=== PATIENT | male | born 1980 | race Caucasian/White ===

== ENCOUNTER 2017-07-26 15:19 | Emergency (ER) | payer MEDICAID ==
[~2017-07-26] VITALS: Ht 177.8 cm; Wt 113.4 kg
[~2017-07-26 15:19] MED LIST: AMOXIL500 MG PO; BACTRIM DS 8001 TA1 PO; CLEAR EYES OP; CYCLOBENZAPRINE10 MG PO; DICLOFENAC 50MG50 MG PO; FENOFIBRATE160 MG PO; HYDROCHLOROTHIA25 M1 PO; LORTAB 5/500 501 TAB PO; MILK OF MA400 MG/52 PO; NAPROSYN 500MG500 MG PO; NOMEDS *; PREDNISONE 20MG20 MG PO; SEPTRA DS 800 M1 TAB PO; TRAMADOL 50MG T50 MG PO; Tramadol HCl50 MG PO; ULTRAM 50 MG TA50 MG PO; VOLTAREN75 MG PO
--- NOTE | 2017-07-26 15:56 | Emergency Room Report ---
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 N Clinical Suspician of Infection? N Mental Status: 1 - Regular (Normal Baseline) Sepsis Risk:Low Sepsis Risk Have you (or family members/close friends) recently traveled outside the [place]? N If Yes, where/when: Have you had exposure to infectious disease within the past month? TB? Other? Specify: His old white male status post diverticulosis and colon resection due to recurrent diverticulitis [address] Soares in [facility]. He presented to the ED complaining of left-sided abdominal pain, no bowel movements and no gas for 2 days, patient has nausea but no vomiting. The pain is worse by leaning forward and better by laying down. He denies having dysuria, hematuria or frequency. He denies having fever or chills, he denies having penile or testicular pain. Source patient, RN notes reviewed Exam Limitations no limitations ALLERGIES Coded Allergies: No Known Allergies (07/26/17) History Medical History General CAD? No Angina: No VT: No Hypertension? Yes Hyperlipidemia? Yes CHF? No COPD? No Asthma? No Anemia? No Hernia? No Thyroid Problems? No Hypothyroidism? No CVA? No Seizures? No Diabetes? No End Stage Renal Disease? No UTI? No Stones? No BPH? No GB Disease: No Nephritic Syndrome? No Asplenia? No Hepatitis? No Sickle Cell Disease? No Arthritis? No Migraines? No Cataracts? No Glaucoma? No MRSA? Yes HIV? No TB? No Anxiety? No Depression? No Cancer? No More? No Immunization Hx Ped.Immunizations UTD Yes DT/Tetanus < 1 YR AGO Flu 2012-FSN Pneumonia Received In Past Surgical Hx Previous Surgery?Y LT ARM JAW RT LEG RT ANKLE RT KNEE COLON 0CT. 15,14 RT SHOULDER Family History Family Hx Diabetes Yes CAD Yes Hypertension Yes Hyperlipidemia Yes Cancer No TB No Social History Smoking Hx Smoker: Current Every Day Smoker Tobacco: Yes Type Cigarettes Packs/day < 1 Pack Alcohol Alcohol: No Review of Systems All Other Systems Reviewed and Negative Constitutional no symptoms reported Eyes no symptoms reported ENT no symptoms reported. Respiratory no symptoms reported Cardiovascular no symptoms reported Gastrointestinal see HPI, abdominal pain Genitourinary no symptoms reported. Musculoskeletal no symptoms reported Skin no symptoms reported Psychiatric/Neurological no symptoms reported Physical Exam Vital Signs Vital Signs Date Time Temp Pulse Resp B/P Pulse O2 O2 Flow FiO2 Ox Delivery Rate 07/26 1631 18 07/26 1528 98.2 101 18 182/100 100 - WBC >12,000 or <4,000 or 10% bands? 2 or more SIRS Criteria Met? B/P:182/100 MAP:127 Creatinine >2.0? UA output<0.5ml/kg/hr for 2 hrs? Platelet count >100,000? Lactate >2.0mmol/1? INR >1.2 or PTT > than 60 sec? Evidence of Organ Dysfunction? Provider documented clinical suspician of infection? N Sepsis Criteria Count: 1 Sepsis Risk: Low Sepsis Risk General Appearance normal appearance, WD/WN Eye Exam - bilateral eye normal exam, bilateral eye PERRL, bilateral eye EOMI Ear, Nose, Throat hearing grossly normal, normal ENT inspection Neck normal inspection, non-tender, supple, full range of motion Respiratory Status Yes: trachea midline, chest symmetrical, non tender chest. No: respiratory distress. Lung Sounds bilateral: normal breath sounds, lungs clear. Cardiovascular normal exam, regular rate/rhythm, no peripheral edema, no gallop, no JVD, no murmur, no rub, normal peripheral pulses Peripheral Pulses Pulses normal Yes Gastrointestinal normal bowel sounds, normal exam, soft, no organomegaly, no guarding, tenderness, obese soft abdomen with no guarding no rigidity LEFT lower quadrant tenderness with no rebound tenderness, there is cross tenderness on deep palpation to the RIGHT lower quadrant into the LEFT lower quadrant. 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 No Results/Orders Laboratory Tests 07/26/17 1600: Sodium 137, Potassium 3.8, Chloride 105, Carbon Dioxide 29, BUN 12, Creatinine 1.1, Estimated Creat Clear 150, Estimated GFR (MDRD) 76, Glucose 111 H, Calcium 8.5, Total Bilirubin 0.3, AST 17, ALT 29, Alkaline Phosphatase 112, Total Protein 7.2, Albumin 3.9, Globulin 3.3 H, Albumin/Globulin Ratio 1.2, WBC 8.5, RBC 5.33, Hgb 16.1, Hct 46.5, MCV 87.2, RDW 12.2, Plt Count 232, MPV 7.7, Gran % 61.8, Gran # 5.3, Lymphocytes % 28.8, Monocytes % 6.7, Eosinophils % 2.3, Basophils % 0.4, Lymphocytes # 2.4, Monocytes # 0.6, Eosinophils # 0.2, Basophils # 0.0, PUBS MCHC 34.6, MCH 30.2, Urine Color YELLOW, Urine Appearance CLEAR, Urine pH 6.0, Ur Specific [place] >= 1.030, Urine Protein NEGATIVE, Urine Ketones NEGATIVE, Urine Blood NEGATIVE, Urine Nitrate NEGATIVE, Urine Bilirubin NEGATIVE, Urine Urobilinogen 0.2, Ur Leukocyte Esterase NEGATIVE, Urine WBC OCC, Ur Squamous Epith Cells OCC, Urine Bacteria 3+, Urine Mucus 4+, Urine Glucose NEGATIVE Current Medication Orders Sig/Brayan Start time Last Medication Dose Route Stop Time Status Admin Iopamidol 75 ML ONCE ONE 07/26 1645 UNV 07/26 IV 07/26 1646 1637 Sodium Chloride 10 ML ONCE ONE 07/26 1645 UNV 07/26 IV 07/26 1646 1637 Diatrizoate Meglum/ 0 .STK-MED ONE 07/26 1607 DC Diatrizoate Sod .ROUTE Ertapenem 0 .STK-MED ONE 07/26 1607 DC .ROUTE Sodium Chloride 50 ML .STK-MED ONE 07/26 1607 DC IV Sodium Chloride 1,000 ML .STK-MED ONE 07/26 1607 DC IV Ketorolac 0 .STK-MED ONE 07/26 1606 DC Tromethamine .ROUTE Diatrizoate Meglum/ 30 ML ONCE ONE 07/26 1600 DC Diatrizoate Sod PO 07/26 1601 Ertapenem 1 GM ONCE ONE 07/26 1600 DC 07/26 Sodium Chloride 50 ML IV 07/26 1629 1633 Ketorolac 30 MG ONCE ONE 07/26 1600 DC 07/26 Tromethamine IV 07/26 1601 1631 Sodium Chloride 1,000 ML .Q1H1M 07/26 1600 DC 07/26 IV 07/26 1700 1631 Sodium Chloride 10 ML PRN PRN 07/26 1600 AC IV 07/27 1551 Orders Procedure Date/time Status DIET-NOTHING BY MOUTH 07/[address] ABD & PELVIS W/ CONTRAST 07/26 1603 Active CULTURE, URINE 07/[address] ABD/PELVIS REQ 07/26 155 Complete CULTURE, BLOOD 07/26 155 Active URINALYSIS/COMPLETE 07/26 155 Complete CBC WITH AUTO DIFF 07/26 155 Complete CHEM 12 PROFILE 07/26 155 Complete Departure Departure Time of Disposition 1555 Disposition Still a Patient Clinical Impression Primary Impression: Abdominal pain of unknown cause Secondary Impressions: UTI (urinary tract infection) Condition STABLE Referrals Renée Juarez APRN (Family) Additional Instructions THE PATIETN FELT BETTER AND HAD NO VOMITING. THE CBC AND CT SCAN WAS NEGATIVE FOR INTRA ABDOMINAL PATHOLOGY. HIS UA WAS POSITIVE FOR BACT. I WILL START HIM ON CIPRO 500 MG BID X ONE WEEK. BENTYL FOR CRAMPS. FOLLOW UP WITH HIS MIKEY IN AM Discharge Counseling Counseled pt/family regarding diagnosis, test results, medications/RX, home care, follow up needs Prescriptions Current Visit Scripts CIPROFLOXACIN HCL (Cipro 250MG TAB) 250 MG PO BID #14 TAB DICYCLOMINE HCL (Bentyl) 10 MG PO Q8HP PRN PAIN #21 CAP ED Critical Care Critical Care No If Critical Care minutes are documented, the time involved in the performance of seperately reportable procedures was not counted toward critical care time documented. I directly delivered medical care to this critically ill and/or injured patient. Timely evaluation and treatment was necessary to address the significant organ system(s) dysfunction present in this patient. at 1756
[2017-07-26 16:05] LABS: URINE BILIRUBIN - DIPSTICK NEGATIVE (NEG); URINE BLOOD NEGATIVE (NEG)
[2017-07-26 16:08] LABS: HEMOGLOBIN 16.1 g/dL (14.1-18.0); LYMPH # 2.4 K/mm3 (0.7-4.5); LYMPH % 28.8 % (10-50)
[2017-07-26 16:11] LABS: URINE SQUAMOUS CELLS OCC #/hpf (OCC)
[2017-07-26] MEDS ORDERED: BENTYL10 M1 PO (17:55)
[2017-07-26] MEDS ORDERED: CIPRO 250MG TA250 MG PO (17:55)
[2017-07-26 18:05] VITALS: BP 151/78
--- NOTE | 2017-07-27 05:26 | RADIOLOGY REPORT PS360 ---
CT ABD PELVIS W/ CONTRAST CLINICAL INDICATION: Left lower quadrant pain, nausea and vomiting LLQ PAIN X 2 DAYS. HX OF DIVERTICULITIS COLON RESECTION ORDERING PHYSICIAN: Neftali Hunter MD PATIENT AGE: 37 years COMPARISON: 03/08/2015 TECHNIQUE: Axial images obtained with sagittal and coronal reformats. PROCEDURE: Oral Contrast: None IV Contrast: 75 mL of Isovue-370. FINDINGS: Lung bases are clear. The liver, gallbladder, spleen, adrenal glands, pancreas, and kidneys have an unremarkable appearance. No renal or ureteral calculi. No hydronephrosis. Unremarkable appendix. Postsurgical changes of the sigmoid colon with a anastomosis in the mid sigmoid region. No evidence of diverticulitis, intestinal obstruction, or free air. No abnormal pelvic fluid collection. No acute bony anomalies. There is a small lipoma measuring 3 cm involving the right lower lateral chest wall. There is a tiny umbilical hernia containing fat. IMPRESSION: 1. No acute intra-abdominal or pelvic pathology apparent. 2. Postsurgical changes of the sigmoid colon
== END 2017-07-26 18:13 | disposition still patient (30) ==
LOC: ER 15:19
PROVIDERS: Emergency Medicine
DX: N39.0 Urinary tract infection, site not specified (principal); Z90.49 Acquired absence of other specified parts of digestive tract; I10 Essential (primary) hypertension
CPT/HCPCS: J1335; Q9967

== ENCOUNTER → 2017-08-05 | Outpatient (CLI) | payer MEDICAID ==
[~2017-08-05] MED LIST changes: +BENTYL10 M1 PO; +CIPRO 250MG TA250 MG PO
--- NOTE | 2017-08-07 10:44 | RADIOLOGY REPORT PS360 ---
MRI-UP EXT [facility] THN JNT W/O-LT MRI LEFT HAND HISTORY: LEFT HAND PAINsmashed hand 7 months ago and has had pain and swelling about the fifth metacarpal.. Also has a cyst first proximal phalanx. Marker placed on cyst Patient Age: 37 years: Male Ordering Physician: Larry Tinajero MD TECHNIQUE: Multiplanar multisequence 1.5 T MR COMPARISON : Plain films left hand 05/22/2017 There is near fluid signal area. Is most likely a ganglion cyst seen beneath the skin marker. This is located along the dorsal, medial aspect of proximal thumb just overlying the proximal phalanx. This is fluid signal and measures maximum 9 mm wide, 5.5 mm height it extends for 12 mm length. Well-defined margins. There is reported prior injury to the left fifth metacarpal and fifth finger 7 months ago. Crush injury. On today's MR The fifth metacarpal appears intact. No bone edema. No distortion. No remarkable edema within adjacent soft tissues evident either. The dorsal extensor tendon appears intact. The flexor tendon at the finger seems to be intact. The muscles about the hand at the hypothenar regions appear satisfactory. IMPRESSION:. 1. Small fluid-filled area likely reflecting small ganglion cyst towards the medial anterior proximal of thumb. 2. The fifth metacarpal and adjacent soft tissues appear normal. Fifth MTP joint unremarkable. No discrete abnormalities here.
== END ==
LOC: RAD 07:46
DX: G56.02 Carpal tunnel syndrome, left upper limb (principal)